=== PATIENT | female | born 1950 | race Hispanic/Latino ===

== ENCOUNTER 2018-01-18 17:25 | Emergency (ER) | payer MEDICARE, OTHER ==
[2018-01-18 17:40] VITALS: BP 184/92; PULSE 96; RESP 16; TEMP 98.4; O2SAT 97
--- NOTE | 2018-01-18 18:16 | ED PDOC ---
HPI: Trauma/Fall - HPI Time Seen by Provider: 01/18/18 17:50 Chief Complaint (Nursing): Upper Extremity Problem/Injury Chief Complaint (Provider): S/P Fall History Per: Patient History/Exam Limitations: no limitations Injury Occurred (Timing): Hours Ago: (14:30) Additional Complaint(s): 67 year old female with pmhx of a humeral head fracture presents to the ED for evaluation of left elbow, left knee, and right cheek pain s/p a fall earlier today. Patient reports that around 1430 she tripped and fell on her left hand / elbow (patient not entirely sure) in a theater, also striking her left knee and right cheek on the ground. She notes that the pain in her elbow is so significant that she has a difficult time putting pressure on her hand to stand up or push objects, prompting the ED visit. Otherwise denies loss of consciousness, visual changes, and headache. PMD: none provided Past Medical History Reviewed: Historical Data, Nursing Documentation, Vital Signs Vital Signs: Last Vital Signs Temp 98.4 F 01/18/18 17:39 Pulse 96 H 01/18/18 17:39 Resp 16 01/18/18 17:39 BP 184/92 H 01/18/18 17:39 Pulse Ox 97 01/18/18 17:39 - Medical History PMH: Fractures (humeral head) Denies: CVA, Diabetes, HTN, Hyperlipidemia - Surgical History Surgical History: Other surgeries: hysterectomy; ORIF with implant from Right humeral head frac turroge - Family History Family History: States: Unknown Family Hx - Social History Current smoker - smoking cessation education provided: No Alcohol: None Drugs: Denies - Home Medications Home Medications: Ambulatory Orders Medication Instructions Recorded Lansoprazole [Prevacid] 30 mg PO DAILY #30 tab 09/08/15 Ondansetron [Zofran Odt] 4 mg PO ASDIR PRN #20 odt 09/08/15 traMADol [Ultram] 50 mg PO TID PRN #15 tab 09/08/15 Ibuprofen [Motrin Tab] 600 mg PO Q6 PRN 5 Days tab 01/18/18 - Allergies Allergies/Adverse Reactions: Allergies Allergy/AdvReac Type Severity Reaction Status Date / Time shellfish derived Allergy ANAPHYLAXIS Verified 09/08/15 13:34 Review of Systems ROS Statement: Except As Marked, All Systems Reviewed And Found Negative Eyes: Negative for: Vision Change ENT: Positive for: Other (right cheek pain) Musculoskeletal: Positive for: Arm Pain (left elbow), Leg Pain (left knee) Neurological: Negative for: Headache, Other (loss of consciousness) Physical Exam - Reviewed Nursing Documentation Reviewed: Yes Vital Signs Reviewed: Yes - Physical Exam Appears: Positive for: No Acute Distress Head Exam: Positive for: ATRAUMATIC, NORMOCEPHALIC Eye Exam: Positive for: Normal appearance, EOMI, PERRL ENT: Positive for: Normal ENT Inspection, Pharynx Is (clear, unremarkable, no blood noted), TM Is/Are (unremarkable bilaterally), Other (right cheek: ecchymosis and swelling wth some tenderness to palpation, no deformity noted). Negative for: Sinus Pain/Drainage (no blood noted to nasal cavity) Cardiovascular/Chest: Positive for: Regular Rate, Rhythm Respiratory: Positive for: Normal Breath Sounds Pulses-Dorsalis Pedis (L): 2+ Pulses-Radial (L): 2+ Extremity: Positive for: Normal ROM (normal flexion and extension of left knee, ankle, and wrist; pain with flexion at left elbow), Tenderness (tendernes to palpation of posterior aspect of left elbow, no ecchymosis, edema, or deformity noted), Other (left knee: ecchymosis over patella with no swelling, tenderness to palpation, or deformity; sensation intact in bilateral upper and lower extremities; education reviewer strength equal in bilateral upper extremities) Neurologic/Psych: Positive for: Alert, Oriented (x3). Negative for: Motor/Sensory Deficits - ECG O2 Sat by Pulse Oximetry: 97 (RA) Pulse Ox Interpretation: Normal Medical Decision Making Medical Decision Making: Time: 1803 Initial Impression: pain s/p fall Initial Plan: --CT Maxillofacial w/o contrast --XR left elbow --Ibuprofen 600mg PO 1925 Maxillofacial FINDINGS: BONES: No acute fracture or aggressive appearing osseous lesion. The mandible is intact. SOFT TISSUES: The soft tissues are unremarkable. SINUSES: There is an approximate 1.5 x 0.8 cm polyp or retention cyst right maxillary sinus. ORBITS: The orbits are normal. No retrobulbar hematoma or mass. IMPRESSION: No acute osseous abnormality. Minimal sinus disease present. 2030 Preliminary reviews of elbow XR show no obvious fracture, but possible anterior joint effusion. Patient informed of results and made aware that she will be contacted if the final results show fracture or other result. Stable for d/c home. Pt refusing to have BP rechecked stating that her BP is always high when she goes to the hospital or doctor but readings are normal at home. She states that she feels well and will f/u with her PMD in the next couple of days. --- Scribe Attestation: Documented by Sallie Thomas, acting as a scribe for Jessie Corrigan PA-C. Provider Scribe Attestation: All medical record entries made by the Scribe were at my direction and personally dictated by me. I have reviewed the chart and agree that the record accurately reflects my personal performance of the history, physical exam, medical decision making, and the department course for this patient. I have also personally directed, reviewed, and agree with the discharge instructions and dis position. Disposition - Clinical Impression Clinical Impression: Elbow strain, Facial contusion - Patient ED Disposition Is Patient to be Admitted: No Counseled Patient/Family Regarding: Studies Performed, Diagnosis, Need For Followup - Disposition Disposition: Routine/Home Disposition Time: 20:38 Condition: STABLE Additional Instructions: apply ice to your Right cheek. Use Ibuprofen for pain. Use Stone bandage to Left elbow for comfort as needed. Return to ER if you develop worsening pain or numbness/tingling in your Left hand. F/u with your primary care doctor or orthopedist as needed. Prescriptions: Ibuprofen [Motrin Tab] 600 mg PO Q6 PRN 5 Days tab PRN Reason: Pain, Moderate (4-7) Instructions: Muscle Strain (DC), Contusion (DC), Minor Head Injury (DC) Forms: [place] ([employer]) Print Language: IRISH
--- NOTE | 2018-01-19 11:50 | RAD ---
Date of service: 01/18/2018 PROCEDURE: Radiographs of the left elbow. HISTORY: fall w/ elbow pain COMPARISON: No prior. FINDINGS: BONES: Normal. No fracture. JOINTS: Normal. No osteoarthritis. SOFT TISSUES: Normal. JOINT EFFUSION: None. OTHER FINDINGS: None IMPRESSION: Unremarkable radiographs of the left elbow.
--- NOTE | 2018-01-19 12:54 | CT ---
Date of service: 01/18/2018 PROCEDURE: CT MAXILLOFACIAL BONES WITHOUT CONTRAST HISTORY: fall with facial trauma COMPARISON: Not available TECHNIQUE: Contiguous axial CT images of the maxillofacial bones were obtained. Coronal and sagittal reformats were generated. Radiation dose: Total exam DLP = 687.83 mGy-cm. This CT exam was performed using one or more of the following dose reduction techniques: Automated exposure control, adjustment of the mA and/or kV according to patient size, and/or use of iterative reconstruction technique. FINDINGS: NASAL BONES: Unremarkable. ORBITS: No orbital hemorrhage. The globes are rounded and symmetric. The optic nerves and extraocular muscles are symmetric and intact. PARANASAL SINUSES/ MASTOIDS: Two retention cysts or polyps in the right maxillary antrum. Otherwise unremarkable. MAXILLA: No fracture. Right pre maxillary and pre mandibular soft tissue swelling and contusion consistent with direct trauma. MANDIBLE/ TEMPOROMANDIBULAR JOINTS: No fracture. Temporomandibular joints intact. SKULL BASE: Unremarkable. TEMPORAL BONES: Middle ears and mastoid grossly unremarkable. OTHER FINDINGS: None. IMPRESSION: Right pre maxillary/submaxillary soft tissue contusion and swelling. No facial fracture. Right maxillary retention cysts/polyps. Otherwise unremarkable. The preliminary findings for this examination were reported by [facility] at 7:26 p.m. on 01/18/2018. There is concurrence of this report with the preliminary findings.
== END 2018-01-18 20:40 | disposition home or self-care (01) ==
LOC: H.ER 17:25
DX: S53.402A Unspecified sprain of left elbow, initial encounter (principal); S00.83XA Contusion of other part of head, initial encounter; W01.0XXA Fall on same level from slipping, tripping and stumbling without subsequent striking against object, initial encounter; Y92.89 Other specified places as the place of occurrence of the external cause